=== PATIENT | female | born 1970 | race Hispanic/Latino ===

== ENCOUNTER → 2024-11-02 | Day surgery (SDC) | payer OTHER ==
[~2024-11-02] MED LIST: FENTANYL CITRATE/PF 100MCG/2 ML INJ ONE; GLUCAGON FOR INJ 1 MG VIAL ONE; HYOSCYAMINE SULFATE 0.5 MG/ML INJ ONE; KETAMINE 50MG/5ML SYR ONE; LIDOCAINE HCL 2% LOCAL INJ 5 ML SDV VIAL INJ ONE; METOCLOPRAMIDE HCL 10 MG/2ML VIAL ONE; OMEGA 3 1,0001 EACH PO; PROPOFOL IV EMULSION 10 MG/ML 20 ML VIAL ONE; PROPOFOL IV EMULSION 50 ML IV ONE; VIT B12 PO; VIT D PO
[2024-11-02] MEDS: LACTATED RINGER'S 1,000 ML ONE (09:10)
[2024-11-02 12:56] LABS: CDIFF AG QUIK CHEK NEGATIVE (NEGATIVE); CDIFF TOX QUIK CHEK NEGATIVE (NEGATIVE); WBC,FECAL (FECAL LACTOFERRIN) POSITIVE (NEGATIVE)
[2024-11-02 13:05] VITALS: BP 106/68; PULSE 85; RESP 17; TEMP 98; O2SAT 98
[2024-11-03 22:00] LABS: C-REACTIVE PROTEIN 1 mg/L (0-10)
[2024-11-05 10:10] LABS: ENDOMYSIAL ANTIBODIES, IGA Negative (Negative)
[2024-11-05 13:00] LABS: IMMUNOGLOBULIN A 345 mg/dL (87-352); TISSUE TRANSGLUTAMINASE IGA AB <2 U/mL (0-3)
== END | disposition home or self-care (01) ==
LOC: OR 08:52 → EDSEX 12:30
PROVIDERS: ATTEND Internal Medicine Gastroenterology
DX: K21.9 Gastro-esophageal reflux disease without esophagitis (principal); K63.5 Polyp of colon; K31.7 Polyp of stomach and duodenum; K29.70 Gastritis, unspecified, without bleeding; K52.9 Noninfective gastroenteritis and colitis, unspecified; K20.90 Esophagitis, unspecified without bleeding; Q40.8 Other specified congenital malformations of upper alimentary tract; K31.89 Other diseases of stomach and duodenum; K44.9 Diaphragmatic hernia without obstruction or gangrene; K57.30 Diverticulosis of large intestine without perforation or abscess without bleeding; K62.89 Other specified diseases of anus and rectum; K64.8 Other hemorrhoids; Z71.3 Dietary counseling and surveillance; R63.4 Abnormal weight loss; Z01.810 Encounter for preprocedural cardiovascular examination; Z68.27 Body mass index [BMI] 27.0-27.9, adult
CPT/HCPCS: 43239; 43251; 45380; 45385; 81025; 82784; 83516; 83630; 83993; 86140; 86256; 87045; 87177; 87324; 87328; 87449; 93005; J1610; J1980; J2003; J2470; J2704 ×2; J2765; J3010; J7121